=== PATIENT | male | born 1950 | race Caucasian/White ===

== ENCOUNTER 2017-02-05 10:05 | Day surgery (SDC) | payer MEDICARE, OTHER ==
[~2017-02-05] VITALS: Ht 182.9 cm; Wt 90.9 kg
[~2017-02-05 10:05] MED LIST: BACTRIM 400-801 TAB PO; BAYER CHEWABLE81 MG PO; CALCIUM 500 + D1 TAB PO; FLOMAX0.4 MG PO; HYDROCODONE-APA1 TAB PO; IMURAN50 MG PO; KLONOPIN1 MG PO; LIPITOR20 MG PO; MAG-OX 400 MG400 MG PO; MULTI-DAY VITAM1 TAB PO; NORCO 7.5/325 T1 TA1 PO; NORVASC5 MG PO; PROGRAF0.5 MG PO; PROTONIX40 MG PO; REMERON15 MG PO; STERAPRED 5MG 125 MG PO
[2017-02-05] MEDS ORDERED: ASPIRIN325 MG PO (12:01)
[2017-02-05] MEDS ORDERED: TACROLIMUS ANHYD1 MG PO (12:02)
[2017-02-05] MEDS ORDERED: VITAMIN D31000 UNI2 PO (12:03)
[2017-02-05] MEDS ORDERED: PROBIOTIC1 EAC1 PO (12:06)
[2017-02-05] MEDS ORDERED: KEPPRA500 MG PO (12:08)
[2017-02-05 12:16] VITALS: BP 133/92; Ht 182.9 cm; Wt 90.9 kg
--- NOTE | 2017-02-05 14:58 | NUR ---
PT SCHEDULED FOR #2 INJECTION IN 2 WEEKS (02/19/17 @ 1200), PT TO RECEIVE CARDIAC CLEARANCE. FAX NUMBER GIVEN. DISCHARGE INSTRUCTIONS COMPLETED, PAPERWORK SIGNED AND COPY GIVEN TO PT.
== END 2017-02-05 14:50 | disposition home or self-care (01) ==
LOC: D.OPS 10:05
DX: R10.31 Right lower quadrant pain (principal); G62.9 Polyneuropathy, unspecified

== ENCOUNTER 2017-02-19 09:19 | Day surgery (SDC) | payer MEDICARE, OTHER ==
[~2017-02-19] VITALS: Ht 182.9 cm; Wt 90.9 kg
[~2017-02-19 09:19] MED LIST changes: +ASPIRIN325 MG PO; +KEPPRA500 MG PO; +PROBIOTIC1 EAC1 PO; +TACROLIMUS ANHYD1 MG PO; +VITAMIN D31000 UNI2 PO
[2017-02-19 10:36] VITALS: BP 147/97; Ht 182.9 cm; Wt 90.9 kg
--- NOTE | 2017-02-19 10:48 | NUR ---
PT STATES HIS PAIN IS A 0/10 DR DAI NOTIFIED AND SPOKE WITH PATIENT AND THEY DECIEDED NOT TO PROCEED WITH THE INJECTION PT DISCHARGED WITHOUT ANY PROCEDURE TAKING
== END 2017-02-19 10:45 | disposition home or self-care (01) ==
LOC: D.OPS 09:19
DX: R10.31 Right lower quadrant pain (principal); Z53.9 Procedure and treatment not carried out, unspecified reason

== ENCOUNTER 2017-02-28 10:40 | Day surgery (SDC) | payer MEDICARE, OTHER ==
[~2017-02-28 10:40] MED LIST changes: +PREDNISONE5 MG PO; -STERAPRED 5MG 125 MG PO
[2017-02-28 11:03] VITALS: BP 132/86; BMI 27.2
[2017-02-28 11:47] LABS: HEMATOCRIT 44.9 % (42.0-54.0); HEMOGLOBIN 14.6 g/dL (13.5-17.5); MCH 30.2 pg (26.0-34.0); MCHC 32.5 g/dL (31.0-37.0); MCV 92.8 fL (80.0-100.0); MEAN PLATELET VOLUME 10.2 fL (7.4-10.4); RBC 4.84 10x6/uL (4.20-6.10); RDW 13.4 % (11.5-14.5); WBC 7.3 10x3/uL (4.8-10.8)
--- NOTE | 2017-02-28 12:06 | NUR ---
1206 BALLOON DILATION TO 18MM TIMES 1 MINUTE.
[2017-02-28 12:17] LABS: CALC OSMOLALITY 286 mosm/kg (275-300); CALCIUM 9.2 mg/dL (8.5-10.1); CARBON DIOXIDE 29.4 mmol/L (21.0-32.0); CHLORIDE - SERUM 105 mmol/L (98-107); CREATININE - SERUM 0.9 mg/dL (0.6-1.3); GLUCOSE 116 mg/dL (74-106); POTASSIUM - SERUM 4.2 mmol/L (3.5-5.1); SODIUM 142 mmol/L (136-145); UREA NITROGEN 22 mg/dL (7-18); eGFR NON AFRICAN AMERICAN 90 mL/min (90-120)
[2017-02-28] MEDS ORDERED: PEPCID40 MG PO (12:38)
--- NOTE | 2017-02-28 13:13 | NUR ---
1310-ESCORTED VIA WHEELCHAIR TO PERSONAL CAR, LEFT WITH DRIVING.
--- NOTE | 2017-03-05 09:05 | OP ---
PATIENT NAME: QUINN LÓPEZ MEDICAL RECORD: [id number] :52 LOCATION:[facility] ADMISSION DATE: SURGEON: GABE WILCOX DO DATE OF OPERATION: 02/28/2017 PROCEDURE: EGD with biopsies and balloon dilation less than 30 mm. SCOPE: Olympus video gastroscope. MEDICATIONS: Propofol 180 mg IV per anesthesia. 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 FINDINGS: Informed consent was given. The patient was made comfortable with the above medication. After reaching an adequate level of sedation by slow IV push, the patient was placed on his left side. The endoscope was then advanced under direct visualization through the mouth to the third portion of the duodenum. The upper, middle and distal esophagus appeared normal. At the GE junction, there was evidence of a short segment of Romero's mucosa measuring approximately 1 cm in length without tongues. Multiple biopsies were taken of this site to exclude dysplasia. There were no obvious abnormalities within that mucosa. Also, at the GE junction, there seemed to be some esophageal stenosis. There was not an obvious ring or stricture. At the end of the procedure, an Olympus EZ dilating balloon was placed through the scope and the stenosis was dilated up to 18 mm successfully. Upon advancement of the endoscope into the stomach, retroflexion was performed to view the cardia. The cardia appeared normal without evidence of a hernia. The fundus and body of the stomach appeared normal. In the antrum and prepyloric region, there was erythema and granularity consistent with gastritis. Random biopsies were taken and submitted for histology and to rule out H. pylori. The scope was advanced into the duodenum where the bulb, first portion, second portion, and third portion of the duodenum appeared normal. There was a small area in the second portion of the duodenum, which revealed approximately 3 mm size patch of yellow mucosa consistent with lipomatous changes. Scope was withdrawn from the patient. The patient tolerated the procedure well and there were no complications. ESTIMATED BLOOD LOSS: Less than 5 cc. IMPRESSIONS: 1. Romero's esophagus. Biopsies taken. 2. 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 3. Gastritis of the antrum and prepyloric region. Biopsies taken. PLAN AND RECOMMENDATIONS: 1. Discharge home when recovery parameters are met. 2. Resume current diet. 3. Reflux precautions. 4. Continue Protonix 40 mg p.o. daily. 5. Add Pepcid 40 mg p.o. at bedtime to the medication regimen. 6. Follow up biopsy specimens for planning of surveillance endoscopy regarding Romero esophagus. 7. Return to the GI clinic as needed for dysphagia or other symptoms. TRANSINT:[id number] Voice Confirmation ID: [id number] DOCUMENT ID: [id number] OPERATIVE REPORT [id number] QUINN ÓLPEZ,GABE Pruitt DO at 0905 CC: [id number] DICTATION DATE: 02/28/17 1219 [employer]ERCE MANAGER: 02/28/17 164[facility] 02/28/17 [id number] [place] [address]
== END 2017-02-28 13:10 | disposition home or self-care (01) ==
LOC: D.OPS 10:40
PROVIDERS: Anesthesiology
DX: R10.9 Unspecified abdominal pain (principal); R13.10 Dysphagia, unspecified; K22.70 Barrett's esophagus without dysplasia; K29.70 Gastritis, unspecified, without bleeding; K22.2 Esophageal obstruction; I25.10 Atherosclerotic heart disease of native coronary artery without angina pectoris; R56.9 Unspecified convulsions

== ENCOUNTER 2017-03-11 08:28 | Day surgery (SDC) | payer MEDICARE, OTHER ==
[~2017-03-11] VITALS: Ht 182.9 cm; Wt 90.9 kg
[~2017-03-11 08:28] MED LIST changes: +PEPCID40 MG PO; -PREDNISONE5 MG PO; +STERAPRED 5MG 125 MG PO
[2017-03-11 09:35] LABS: ANION GAP 13.7 mmol/L (8-16); CALCIUM 9.1 mg/dL (8.5-10.1); CARBON DIOXIDE 28.2 mmol/L (21.0-32.0); CREATININE - SERUM 1.1 mg/dL (0.6-1.3); POTASSIUM - SERUM 3.9 mmol/L (3.5-5.1)
[2017-03-11 09:36] LABS: HEMATOCRIT 48.8 % (42.0-54.0); LYMPHOCYTES 36.5 % (15-50); MCHC 32.8 g/dL (31.0-37.0); MCV 91.6 fL (80.0-100.0); MEAN PLATELET VOLUME 9.7 fL (7.4-10.4); NEUTROPHILS 53.1 % (40-80); PLATELET COUNT 234 10x3/uL (130-400); RBC 5.33 10x6/uL (4.20-6.10); RDW 13.3 % (11.5-14.5); WBC 6.5 10x3/uL (4.8-10.8)
[2017-03-11 10:26] VITALS: BP 110/76; Ht 182.9 cm; Wt 90.9 kg
--- NOTE | 2017-03-11 12:05 | NUR ---
DISCHARGE INSTRUCTIONS REVIEWED WITH PATIENT, DISCHARGED HOME VIA WHEELCHAIR TO PRIVATE VEHICLE WITH SPOUSE
--- NOTE | 2017-03-12 10:50 | OP ---
PATIENT NAME: QUINN LÓPEZ MEDICAL RECORD: [id number] :52 LOCATION:[facility] ADMISSION DATE: SURGEON: GABE WILCOX DO DATE OF OPERATION: 03/11/2017 PROCEDURE: Colonoscopy with snare cautery polypectomy. SCOPE: Olympus video pediatric colonoscope. MEDICATIONS: Propofol 300 mg IV per anesthesia. INDICATIONS FOR PROCEDURE: Screening colonoscopy. FINDINGS: Informed consent was given. The patient was made comfortable with the above medication by slow IV push. After reaching the adequate level of sedation, the patient was placed on her left side. A digital rectal examination was performed and was normal. The endoscope was then advanced under direct visualization through the rectum to the terminal ileum. There were 2 benign sessile appearing polyps, both measuring approximately 6 mm in diameter. First was in the cecum. This was removed with snare cautery polypectomy. The polyp was completely removed and retrieved in a single piece. The second polyp was in the proximal transverse colon and was removed with snare cautery polypectomy. The polyp was completely removed and retrieved in 1 piece. The remainder of the examination was normal without evidence of diverticula. Retroflexion was performed in the rectum and was normal. The scope was withdrawn from the patient. The patient tolerated the procedure well and there were no complications. ESTIMATED BLOOD LOSS: Less than 3 cc. IMPRESSION: Two benign sessile polyps located in the cecum and transverse colon, both removed with snare cautery polypectomy. RECOMMENDATIONS: 1. Discharge home when recovery parameters are met. 2. Continue current diet and medications. 3. Follow up biopsy specimens with recall dependent on results of biopsies. 4. Continue to monitor stools while decreasing pain medications. If constipation continues, consideration can be given to medical therapy to assist with bowel movements. I will recommend continuing the MiraLax as needed at this time. TRANSINT:[id number] Voice Confirmation ID: [id number] DOCUMENT ID: [id number] GABE WILCOX DO at 1050 CC: [id number] DICTATION DATE: 03/11/17 1114 COUNTY ASSESSOR: 03/11/172041 [facility] 03/11/17 [facility] [address] [place], [place] [id number]
== END 2017-03-11 12:05 | disposition home or self-care (01) ==
LOC: D.OPS 08:28
PROVIDERS: Anesthesiology
DX: D12.0 Benign neoplasm of cecum (principal); D12.3 Benign neoplasm of transverse colon; E11.9 Type 2 diabetes mellitus without complications; I10 Essential (primary) hypertension; K21.9 Gastro-esophageal reflux disease without esophagitis; I50.9 Heart failure, unspecified

== ENCOUNTER 2017-05-22 12:04 | Day surgery (SDC) | payer MEDICARE, OTHER ==
[~2017-05-22] VITALS: Ht 182.9 cm; Wt 90.9 kg
[2017-05-22] MEDS ORDERED: PROSCAR5 MG PO (12:51)
[2017-05-22 13:03] VITALS: BP 141/89; Ht 182.9 cm; Wt 90.9 kg
== END 2017-05-22 14:10 | disposition home or self-care (01) ==
LOC: D.OPS 12:04
DX: G57.81 Other specified mononeuropathies of right lower limb (principal); Z01.812 Encounter for preprocedural laboratory examination

== ENCOUNTER 2017-05-30 10:10 | Day surgery (SDC) | payer MEDICARE, OTHER ==
[~2017-05-30 10:10] MED LIST changes: +PREDNISONE5 MG PO; +PROSCAR5 MG PO; -STERAPRED 5MG 125 MG PO
[2017-05-30] MEDS ORDERED: KEPPRA500 MG PO (12:54)
[2017-05-30] MEDS ORDERED: TACROLIMUS ANHYD1 MG PO (12:55)
[2017-05-30 13:04] VITALS: BP 129/85; Ht 182.9 cm
--- NOTE | 2017-05-30 15:57 | NUR ---
1450-PATIENT LEFT WITHOUT SIGNING DISCHARGE INSTRUCTIONS.
== END 2017-05-30 14:50 | disposition home or self-care (01) ==
LOC: D.OPS 10:10
DX: G57.81 Other specified mononeuropathies of right lower limb (principal); T81.89XA Other complications of procedures, not elsewhere classified, initial encounter; Z01.812 Encounter for preprocedural laboratory examination

== ENCOUNTER 2018-04-10 05:50 | Day surgery (SDC) | payer MEDICARE ==
[2018-04-09 15:41] LABS: BASOPHILS 0.6 % (0-2); EOSINOPHILS 1.8 % (0-7); HEMATOCRIT 43.9 % (42.0-54.0); HEMOGLOBIN 14.9 g/dL (13.5-17.5); IMMATURE GRANULOCYTES 0.3 % (0-5); LYMPHOCYTES 30.5 % (15-50); MCH 30.8 pg (26.0-34.0); MCHC 33.9 g/dL (31.0-37.0); MCV 90.7 fL (80.0-100.0); MEAN PLATELET VOLUME 10.4 fL (7.4-10.4); MONOCYTES 10.5 % (2-11); NEUTROPHILS 56.3 % (40-80); PLATELET COUNT 273 10x3/uL (130-400); RBC 4.84 10x6/uL (4.20-6.10); RDW 13.1 % (11.5-14.5); WBC 6.9 10x3/uL (4.8-10.8)
[2018-04-09 15:57] LABS: CALC OSMOLALITY 287 mosm/kg (275-300); CALCIUM 9.3 mg/dL (8.5-10.1); CARBON DIOXIDE 30.3 mmol/L (21.0-32.0); CHLORIDE - SERUM 104 mmol/L (98-107); CREATININE - SERUM 0.9 mg/dL (0.6-1.3); GLUCOSE 99 mg/dL (74-106); POTASSIUM - SERUM 3.8 mmol/L (3.5-5.1); SODIUM 145 mmol/L (136-145); UREA NITROGEN 10 mg/dL (7-18); eGFR NON AFRICAN AMERICAN 90 mL/min (90-120)
[~2018-04-10] VITALS: Ht 182.9 cm; Wt 94.8 kg
--- NOTE | ~2018-04-10 | OP ---
PATIENT NAME: QUINN LÓPEZ MEDICAL RECORD: [id number] :52 LOCATION:[facility] ADMISSION DATE: SURGEON: MIKA ALEMAN MD DATE OF OPERATION: 04/10/2018 PREOPERATIVE DIAGNOSES: 1. Bilateral gynecomastia. 2. Heart disease, status post heart transplant. 3. Atrial fibrillation. POSTOPERATIVE DIAGNOSES: 1. Bilateral gynecomastia. 2. Heart disease, status post heart transplant. 3. Atrial fibrillation. PROCEDURE: Bilateral simple mastectomy. SURGEON: Mika Aleman MD OPERATIONS BUSINESS PARTNER: Chanda Hutchison APRN REPORT OF PROCEDURE: The patient's chest was prepped and draped in sterile fashion. The left side was approached first. A semicircular incision was made on the edge of the nipple areolar complex inferiorly. Electrocautery was used to dissect through the subcutaneous tissues to the enlarged breast tissue. We undermined the skin and fatty tissue in all directions and eventually came down around the breast tissue and removed it off the patient's pectoral fascia. The breast tissue was sent off for permanent specimen. We inspected the area closely and any sign of any bleeding was treated with electrocautery. The wound was irrigated out thoroughly with normal saline. We then cleaned up any of the tissue to help make the overall tissue flatter on the patient's chest. Once we did this, we reapproximated the subcutaneous tissues with interrupted 3-0 Vicryls and the skin was closed with running subcutaneous 5-0 Monocryl. We then approached the right side. A semicircular incision was made on the inferior aspect of the nipple areolar complex. Electrocautery was used to dissect through the subcutaneous tissues. We again made a subcutaneous flap overlying the breast tissue in all directions and eventually came around the breast tissue and took it off of the patient's pectoral fascia. The wound was inspected and any bleeding was treated with electrocautery. We then did some cleanup work to make sure that the breast tissue was flat over the entire chest. Once we irrigated out the wound and assured there was no bleeding, then the subcutaneous tissues were reapproximated with interrupted 3-0 Vicryl and the skin was closed with running subcutaneous 5-0 Monocryl. The wounds were then dressed appropriately. COMPLICATIONS: None. CONDITION: Stable. ANESTHESIA: General endotracheal. BLOOD LOSS: Minimal. TRANSINT:[id number] Voice Confirmation ID: [id number] DOCUMENT ID: [id number] OPERATIVE REPORT [id number] QUINN LÓPEZ CHRISTIAN MD at 1031 CC: YAZMIN SHEPPARD MD and BRIDGET PARRISH MD [id number] DICTATION DATE: 04/10/18914 LOCK OPERATOR: 04/10/18 1414 [facility] 04/10/18 [id number] [place] [id number]
[~2018-04-10 05:50] MED LIST changes: +ENULOSE10 G/15 ML PO; +NORVASC10 MG PO; +SPIRIVA RESPIMAT4 G1 INH; +VITAMIN B-121000 MCG PO
[2018-04-10 06:49] VITALS: BP 131/85; Ht 182.9 cm; Wt 94.8 kg
[2018-04-10] MEDS ORDERED: HYDROCODONE-APA1 TAB PO (09:10)
== END 2018-04-10 11:30 | disposition home or self-care (01) ==
LOC: D.OPS 05:50
PROVIDERS: Surgery
DX: N62 Hypertrophy of breast (principal); I51.9 Heart disease, unspecified; Z94.1 Heart transplant status; I48.91 Unspecified atrial fibrillation; Z01.812 Encounter for preprocedural laboratory examination

== ENCOUNTER → 2019-06-19 11:18 | Outpatient (CLI) | payer MEDICARE ==
[2018-04-10 06:49] VITALS: BMI 28.1
== END | disposition home or self-care (01) ==
LOC: D.NM 11:18
PROVIDERS: ATTEND Internal Medicine Gastroenterology
DX: R10.9 Unspecified abdominal pain (principal); R14.0 Abdominal distension (gaseous); K59.03 Drug induced constipation

== ENCOUNTER → 2020-04-19 15:03 | Outpatient (CLI) | payer MEDICARE ==
[2018-04-10 06:49] VITALS: BMI 28.1
[2020-04-19 15:23] LABS: BASOPHILS 0.3 % (0-2); EOSINOPHILS 1.2 % (0-7); HEMATOCRIT 44.4 % (42.0-54.0); HEMOGLOBIN 14.2 g/dL (13.5-17.5); IMMATURE GRANULOCYTES 0.4 % (0-5); LYMPHOCYTES 22.5 % (15-50); MCH 29.3 pg (26.0-34.0); MCV 91.7 fL (80.0-100.0); MEAN PLATELET VOLUME 9.6 fL (7.4-10.4); MONOCYTES 7.7 % (2-11); NEUTROPHILS 67.9 % (40-80); PLATELET COUNT 234 10x3/uL (130-400); RBC 4.84 10x6/uL (4.20-6.10); RDW 13.1 % (11.5-14.5); WBC 9.6 10x3/uL (4.8-10.8)
== END | disposition home or self-care (01) ==
LOC: D.LAB 15:03
PROVIDERS: ATTEND Psychiatry & Neurology Neurology
DX: R56.9 Unspecified convulsions (principal)